=== PATIENT | female | born 1990 | race African-American/Black ===

== ENCOUNTER 2019-11-15 00:06 | Emergency (ER) | payer BC, OTHER ==
[~2019-11-15] VITALS: Ht 152.4 cm; Wt 95.3 kg
[2019-11-15 00:15] VITALS: BP 153/84
[2019-11-15] MEDS ORDERED: LIDOCAINE 1% HCL (LOCAL ANESTH.) INJ 20ML MDV ONE (00:54)
[2019-11-15] MEDS ORDERED: BACITRACIN TOP OINT 1 UD PKG TOP ONE (01:00)
[2019-11-15] MEDS ORDERED: LIDOCAINE 1% (LOCAL ANESTH.) PF 5ml SDV ID ONE (01:00)
[2019-11-15] MEDS ORDERED: TETANUS-DIPTH-ACEL PERTUSSIS 0.5ML SYR Tdap IM ONE (01:00)
== END 2019-11-15 01:09 | disposition home or self-care (01) ==
LOC: ER 00:09 → EEVIPCON 00:09 → ER 01:09
DX: S61.212A Laceration without foreign body of right middle finger without damage to nail, initial encounter (principal); W26.0XXA Contact with knife, initial encounter; Y93.89 Activity, other specified; Y92.89 Other specified places as the place of occurrence of the external cause; Y99.8 Other external cause status
CPT/HCPCS: 12001; 90715; 99283; J2001

== ENCOUNTER 2020-01-09 12:21 | Emergency (ER) | payer BC ==
[~2020-01-09] VITALS: Ht 160 cm; Wt 95.3 kg
[2020-01-09] MEDS ORDERED: INDOMETHACIN 25 MG CAP PO ONE (14:30)
[2020-01-09 16:54] VITALS: BP 125/58
== END 2020-01-09 17:47 | disposition home or self-care (01) ==
LOC: ER 12:21 → EEVIPCON 12:21 → ER 17:47
DX: L03.031 Cellulitis of right toe (principal)
CPT/HCPCS: 36415; 73700; 84550

== ENCOUNTER → 2020-05-10 | Outpatient (CLI) | payer BC, OTHER | END | disposition home or self-care (01) | LOC: LAB 16:30 | PROVIDERS: ATTEND Preventive Medicine Preventive Medicine/Occupational Environmental Medicine | DX: Z02.1 Encounter for pre-employment examination (principal) | CPT/HCPCS: 36415; 86706; 86735; 86762; 86765; 86787 ==